=== PATIENT | male | born 1985 | race Caucasian/White ===

== ENCOUNTER 2023-08-07 05:18 | Emergency (ER) | payer OTHER, MEDICAID, SELFPAY ==
[2023-08-07] VITALS (7 sets, daily range): BP systolic 100–146; BP diastolic 51–99; PULSE 89–162; RESP 16–18; TEMP 36.6; O2SAT 94–97
--- NOTE | 2023-08-07 05:18 | ECG_ITS ---
Measurements Intervals [place] Rate: 153 P: 63 MI: 104 QRS: 52 QRSD: 94 T: 12 QT: 293 QTc: 469 Interpretive Statements SINUS TACHYCARDIA WITH SHORT MI INTERVAL, POSSIBLE ATRIAL FLUTTER DELAYED PRECORDIAL R/S TRANSITION NONSPECIFIC T-WAVE ABNORMALITY- INFERIOR LEADS BASELINE WANDER- I, II, III, AVL, AVF ABNORMAL ECG NO PREVIOUS ECG AVAILABLE FOR COMPARISON Electronically Signed On 08-07-2023 6:14:20 [employer] by Murphy Dumont D.O.
[2023-08-07] MEDS: LORazepam INJ (*CRX) 2 MG/ML VIAL IV PUSH ×4 (05:22→06:49)
[2023-08-07] MEDS: SODIUM CHLORIDE 0.9% IV 1,000 ML 999 ML IV CONT (05:22)
[2023-08-07] MEDS: Please add drug allergy info to patient profile. 1 EACH XX (05:23)
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
[2023-08-07 05:37] LABS: Basophils Percent Auto 0.3 % (0.2-1.2); Eosinophils Percent Auto 0.1 % (0-4.4); Hematocrit 40.7 % (42.0-52.0); Hemoglobin 14.2 g/dL (14.0-18.0); Immature Granulocyte Absolute 0.04 K/mm3 (0.00-0.031); Immature Granulocyte Percent A 0.3 % (0-0.5); Lymphocytes Absolute Auto 1.36 K/mm3 (0.9-3.2); Lymphocytes Percent Auto 10.5 % (18.3-44.2); Mean Corpuscular HGB Conc 34.9 g/dl (32-36); Mean Corpuscular Hemoglobin 30.7 pg (26-34); Mean Corpuscular Volume 88.1 fl (80-100); Monocytes Absolute Auto 0.8 K/mm3 (0.1-0.6); Neutrophils Absolute Auto 10.7 K/mm3 (1.3-6.7); Neutrophils Percent Auto 82.8 % (45.5-73.1); Platelet Count Result 206 k/mm3 (150-375); Red Blood Count 4.62 M/mm3 (4.6-6.20); Red Cell Distribution Width 12.2 % (11.5-14.5); White Blood Count 12.9 K/mm3 (4.5-10.0)
[2023-08-07 05:48] LABS: Alanine Aminotransferase 82 U/L (6-50); Albumin Level 4.4 g/dL (3.5-5.1); Alkaline Phosphatase 114 U/L (38-126); Anion Gap 18 mmol/L (8-16); Aspartate Amino Transferase 83 U/L (17-59); Bilirubin,Total 2.1 mg/dL (0.2-1.3); Blood Urea Nitrogen 19 mg/dL (9-20); Calcium 9.5 mg/dL (8.4-10.2); Carbon Dioxide 19 mmol/L (22-30); Chloride 101 mmol/L (98-107); Estimated CRCL calculation 51 ml/min; Estimated Glomerular Filt Rate 46; Glucose 82 mg/dL (65-110); Potassium 3.6 mmol/L (3.4-5.0); Sodium 138 mmol/L (137-145)
[2023-08-07 05:51] LABS: Ethanol < 10 mg/dL (<10)
[2023-08-07 05:53] LABS: Creatine Kinase 1411 U/L (55-170)
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
[2023-08-07 06:14] LABS: Barbiturate Screen Urine Negative (Negative); Benzodiazepines Screen Urine Positive (Negative)
[2023-08-07 06:35] LABS: Amphetamine Screen Urine Negative (Negative); Cannabinoid Screen Urine Positive (Negative); Cocaine Screen Urine Positive (Negative); Methadone Screen Urine Negative (Negative); Opiate Screen Urine Negative (Negative); Phencyclidine Screen Urine Negative (Negative)
--- NOTE | 2023-08-07 08:15 | PC.NURSE ---
Pt dad Mendel called and stated he would pick him up pt. Mendel stated that pt phone are turned off.
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
== END 2023-08-07 09:08 | disposition home or self-care (01) ==
LOC: ANHED 08:11
PROVIDERS: Emergency Provider Emergency Medicine
DX: F14.10 Cocaine abuse, uncomplicated (principal)
CPT/HCPCS: 36415; 36600; 80053; 80307; 82550; 85025; 93005; 96361; 96374; 96376; 99284; J2060; J7030